=== PATIENT | male | born 1950 | race Caucasian/White ===

== ENCOUNTER 2025-07-28 08:07 | Day surgery (SDC) | payer MEDICARE, OTHER, SELFPAY ==
[2025-07-28] VITALS (16 sets, daily range): BP systolic 130–159; BP diastolic 81–101; BMI 22.9
[2025-07-28 08:29] LABS: Hematocrit 35.6 % (39.0-52.0); Hemoglobin 11.3 g/dL (13.0-18.0); Mean Corp Hgb Conc. 31.7 g/dL (33.0-37.0); Mean Corpuscular Volume 78.9 fL (80.0-94.0); Platelet Count 225 10^3/uL (130-400); Red Cell Dist. Width 15.3 % (11.5-14.5)
[2025-07-28 08:50] LABS: Blood Urea Nitrogen 22 mg/dl (9-20); Calcium 9.3 mg/dl (8.4-10.2); Carbon Dioxide 27 mmol/L (22-30); Chloride 106 mmol/L (98-107); Estimated Creatinine Clearance 62 ml/min; Glucose 106 mg/dl (70-99); Potassium 3.6 mmol/L (3.5-5.1); Sodium 142 mmol/L (135-145); eGFR > 60.00
--- NOTE | 2025-07-28 10:43 | ITS.CL.PACE ---
[facility] - Pacemaker Implant
Pacemaker Implant
Procedure Report:
Primary Care Doctor: Dr Radha Garcia
Primary Buffer Chrome: Dr Ethan Colon
Procedure Date: 07/28/2025
Name of procedure:
1. Placement of a single-chamber pacemaker with left bundle area pacing lead for conduction system pacing
2. Subclavian venography
History:
1. Patient is a pleasant 75-year-old male with a past medical history significant for CAD with prior CABG and stenting, dyslipidemia, hypertension, right bundle branch block, tachybradycardia syndrome with symptomatic permanent atrial fibrillation
with difficult to control heart rate. Patient experienced syncope in the setting of tachybradycardia syndrome.
2. Please refer to H&P for complete history.
Indication:
Symptomatic tachybradycardia syndrome
Syncope with symptomatic bradycardia
Permanent AF
Methods:
After informed consent was obtained, the patient was brought to the EP laboratory in a postabsorptive, nonsedated state. Peripheral IV access was established. Prophylactic antibiotics were administered prior to incision. Continuous ECG, blood
pressure, and pulse oximetry were initiated. Cardioversion patch electrodes were placed on the patient's chest and back. A grounding patch was applied to the skin. Sedation was administered left.
In order to define the extrathoracic portion of the subclavian vein and exclude significant venous obstruction or anomalous anatomy, subclavian venography was performed prior to the procedure. Using the patient's left peripheral IV, contrast was
injected and images were recorded. The left subclavian vein and SVC were found to be widely patent.
The left chest was prepared and draped in a sterile fashion. A time-out was performed. Local anesthesia was injected in the subcutaneous tissue in the infraclavicular area. An incision was made medial to the deltopectoral groove. The subcutaneous
tissue was dissected the level of the prepectoral fascia. A subcutaneous pocket was created. Under fluoroscopic guidance and with the assistance of the images from the venogram, venipuncture was made using micropuncture and modified Seldinger
technique. These were performed in the extrathoracic portion of the subclavian vein. Guidewire was passed and a peel-away sheath was placed and used to advance lead into the circulation.
Fluoroscopy was used to determine likely anatomic site for left bundle branch pacing. The Medtronic C315 sheath was used to deliver the Medtronic 3830 Selectsecure pacing lead with the helix exposed just exposed from the sheath tip during continuous
monitoring when pace mapping the septum during gentle clockwise rotation to obtain a paced QRS morphology of a W pattern in lead V1. Once the suspected optimal site was identified, lead deployment was performed with several rapid rotations as paced
QRS morphology was intermittently monitored until a paced QRS complex in lead V1 demonstrated development of an R wave (qR or rSR). Unipolar pacing impedance dropped by approximately 100-200 ohms suggesting it had reached the left ventricular
subendocardial. Stable VEgm injury current is present throughout lead position and at end of case. Final unipolar pacing impedance is 1045 Ohms. Unipolar pacing threshold is stable at 1.2 V @ 0.4 ms. The patient had pre-existing right bundle branch
block morphology at baseline and a sharp high-frequency left bundle-branch potential was observed preceding the local ventricular electrogram. Final conduction system paced QRS complex duration is 140 ms, LVAT is 81 ms, and peak V5 -> peak V1 timing
is 49 ms. The C315 sheath was slit under fluoroscopy ensuring lead position and stability.
The pocket was flushed with antibiotic solution and hemostasis was assured. The generator was connected to the leads and placed inside the pocket. The device was sutured to the fascia. Antibiotic envelope was used. Floseal was applied. The wound
was closed with 3 running layers of absorbable suture, and steri-strips were applied. Dressing applied over steri-strips in standard fashion.
Following the procedure, the patient was taken to the recovery area in stable condition. A chest x-ray to be obtained post procedure as routine.
Lead parameters and device programming:
- RV Lead (Medtronic, Model 3830, #[id number]): Sensing 7.0 mV, Pacing threshold 0.5 V at 0.4 ms, Imp 817 Ohm
- Device: Medtronic, Model W1SR01 pacemaker (#[id number]), programmed VVIR 70-130 ppm
Conclusions:
1. Successful placement of a single-chamber pacemaker with conduction system pacing (LBBAP)
2. Subclavian venography
Recommendations:
- Admit
- Chest x-ray today, [facility] in AM
- IV antibiotics while the patient is admitted.
- OK to resume home medications as indicated
- Pressure dressing to be removed in AM, aquacell to remain until wound check
- Follow-up will be arranged in the office in 7-10 days post-discharge
- If patient and site stable, OK to resume OAC 07/29/2025 PM
Jeremiah Shay DO, FAC, [facility]
Clinical Cardiac Oil Burner Installer
cc: Dr Radha Garcia; Dr Ethan Colon
--- NOTE | 2025-07-28 14:28 | CM ---
Reviewed chart. Met with MrDickson and Mrs. Tejeda to review discharge plans. He states prior to admission he resides with his spouse in a second floor apartment with an elevator. He states prior to admission he uses a single point cane He states he has
a single point cane at home. He states he has a prescription plan and uses [facility]. The discharge plan is to return home with his spouse when medically stable.
[2025-07-28 15:32] LABS: Glucose - Point of Care 94 mg/dl (70-99)
[2025-07-28 17:06] LABS: Glucose - Point of Care 206 mg/dl (70-99)
[2025-07-28] MEDS: ANCEF 5 IV ×2 (17:16→23:07)
[2025-07-28 17:54] LABS: Glucose - Point of Care 195 mg/dl (70-99)
[2025-07-28] MEDS: LOPRESSOR 25 MG PO (20:49)
[2025-07-28 21:26] LABS: Glucose - Point of Care 253 mg/dl (70-99)
[2025-07-28] MEDS: TYLENOL 650 MG PO (22:20)
[2025-07-28] MEDS: LIPITOR 20 MG PO (22:20)
[2025-07-28 22:21] LABS: Glucose - Point of Care 242 mg/dl (70-99)
[2025-07-28] MEDS: NOVOLOG FLEXPEN 4 UNITS SC (22:21)
--- NOTE | 2025-07-28 22:41 | PTCARENOTE ---
Patient received at change of shift resting in the bed. Left anterior chest wall pressure dressing in place, C/D/I, surrounding area soft to palpation. Radial pulse palpable. LUE in sling as ordered. The patient reports some mild to moderate pain at
the incision site, requesting PRN acetaminophen around bedtime, see MAR. Afib on the monitor with some Vpacing. Oxygen saturation 96% on RA. Patient with elevated blood glucose, CT surgery RUI Schwraz notified, stat dose of insulin ordered, see
MAR. Plan of care discussed, language line services utilized. Activity restrictions discussed. Call baker within reach. Care ongoing.
[2025-07-29 03:22] VITALS: BP 155/103
[2025-07-29 03:31] VITALS: BP 155/102
[2025-07-29 03:54] LABS: Hematocrit 34.0 % (39.0-52.0); Hemoglobin 11.1 g/dL (13.0-18.0); Mean Corp Hgb Conc. 32.6 g/dL (33.0-37.0); Mean Corpuscular Volume 77.4 fL (80.0-94.0); Platelet Count 211 10^3/uL (130-400); Red Cell Dist. Width 15.0 % (11.5-14.5)
[2025-07-29 04:20] LABS: Blood Urea Nitrogen 24 mg/dl (9-20); Calcium 9.0 mg/dl (8.4-10.2); Carbon Dioxide 22 mmol/L (22-30); Chloride 107 mmol/L (98-107); Estimated Creatinine Clearance 68 ml/min; Glucose 155 mg/dl (70-99); Magnesium 1.8 mg/dl (1.6-2.3); Potassium 4.4 mmol/L (3.5-5.1); Sodium 136 mmol/L (135-145); eGFR > 60.00
[2025-07-29 06:00] VITALS: BP 149/100
[2025-07-29] MEDS: LOPRESSOR 25 MG PO (06:17)
--- NOTE | 2025-07-29 07:24 | W.PN.CARDCBS ---
Addendum entered and electronically signed by Rui Kwok MD 07/29/25 10:32:
Patient seen and examined
Agree with PRINT SHOP MANAGER note and assessment
Agree with PRINT SHOP MANAGER plan
Exam:
HEENT normocephalic atraumatic
Cor regular
Telemetry with appropriate ventricular sensing and pacing
ECG reviewed
Chest x-ray reviewed
Left deltopectoral groove incision clean dry intact without hematoma
Impression:
Symptomatic tachybradycardia syndrome
Syncope with symptomatic bradycardia - 4.3 sec pause on Holter
Permanent Atrial fibrillation
post single chamber PPM with LBAP 07/28/25
CAD PCI 2014
HTN
HLD
RBBB
Plan:
Post device site stable
tele Afib
CXR no PTX, lead in good position
Hold Eliquis, resume tonight
Restart diltiazem and metoprolol, titrate as able as outpt
Hold Metformin 48hrs, post IV contrast, A1c pending
Activity restrictions reviewed
Incision check 1 week at [facility]
continue cardiac care with Dr. Colon
home today
Original Note:
Today's Communication / Plan
-
post SC PPM, stable for d/c home
Impression / Plan
-
Primary Care Doctor: Dr Radha Garcia
Primary Student Financial Aid Manager: Dr Ethan Colon
75-year-old male with a past medical history significant for CAD with prior CABG and stenting, dyslipidemia, hypertension, right bundle branch block, tachybradycardia syndrome with symptomatic permanent atrial fibrillation with difficult to control
heart rate. Patient experienced syncope in the setting of tachybradycardia syndrome.
Impression:
Symptomatic tachybradycardia syndrome
Syncope with symptomatic bradycardia - 4.3 sec pause on Holter
Permanent Atrial fibrillation
post single chamber PPM with LBAP 07/28/25
CAD PCI 2014
HTN
HLD
RBBB
Plan:
Post device site stable
tele Afib
CXR no PTX, lead in good position
Hold Eliquis, resume tonight
Restart diltiazem and metoprolol, titrate as able as outpt
Hold Metformin 48hrs, post IV contrast, A1c pending
Activity restrictions reviewed
Incision check 1 week at [facility]
continue cardiac care with Dr. Colon
home today
Progress Note - Student Financial Aid Manager
Subjective
Date of Service: July 29, 2025
denies cp, sob, mild inc pain
Objective
Labs:
07/29/25 03:36
07/29/25 03:36
Labs
Hgb 11.1 g/dL (13.0-18.0) L 07/29/25 03:36
Hct 34.0 % (39.0-52.0) L 07/29/25 03:36
Plt Count 211 10^3/uL (130-400) 07/29/25 03:36
Sodium 136 mmol/L (135-145) 07/29/25 03:36
Potassium 4.4 mmol/L (3.5-5.1) 07/29/25 03:36
BUN 24 mg/dl (9-20) H 07/29/25 03:36
Creatinine 0.9 mg/dL (0.7-1.3) 07/29/25 03:36
Glucose 155 mg/dl (70-99) H 07/29/25 03:36
Vital Signs and I&O:
Vital Signs
Temp Pulse Resp BP Pulse Ox
98.2 F 94 18 149/100 97
07/29/25 03:30 07/29/25 06:17 07/29/25 03:30 07/29/25 06:17 07/29/25 03:30
Vital Signs
Temp Pulse Resp BP Pulse Ox
98.2 F 94 18 149/100 97
07/29/25 03:30 07/29/25 06:17 07/29/25 03:30 07/29/25 06:17 07/29/25 03:30
Intake & Output
07/27/25 07/28/25 07/29/25 07/30/25
06:59 06:59 06:59 06:59
Intake Total 960 / 960
Balance 960 / 960
Physical Exam
Physical Exam
NAD, AOX3
S1, S2, RRR
CTAB, non labored, no wheeze
SNTND bsx4
L CW site scant marked drainage, no HT
--- NOTE | 2025-07-29 08:00 | PTCARENOTE ---
Assumed care of pt from prev nsg shift; Pt AAOx3 w/no c/o CP or SOB. Pt is [place] speaking but able to make needs known utilizing day treatment clinician/art therapist ipad. VSS w/HR in the 90's & BP 156/101 this AM. Pt is Afib w/occas V-pacing on telemetry monitoring. Pt
w/L chest wall PPM site w/Aquacell dressing C/D/I w/sm area of marked old drainage. No signs or symptoms of active bleeding or hematoma. Pt reports 'mild, 2/10 pain' at the site but is declining PRN Tylenol at this time. Pt w/no addtl needs at this
time. Plan of care ongoing.
[2025-07-29 08:28] VITALS: BP 156/101
[2025-07-29 08:28] LABS: Glycohemoglobin (HgbA1c) 6.0 % (4.0-5.6)
[2025-07-29 08:29] VITALS: BP 149/118
[2025-07-29] MEDS: CARDIZEM CD 240 MG PO (08:37)
[2025-07-29] MEDS: ZESTRIL 40 MG PO (08:37)
[2025-07-29] MEDS: ASPIR LOW (ENTERIC COATED) 81 MG PO (08:37)
--- NOTE | 2025-07-29 08:58 | W.DS.TRANS ---
DC Summary - Design Release Engineer
-
Discharge Instructions:
Sleep Apnea Risk Intermediate
Discharge Diagnosis/Procedures Pacemaker implant
Diet Low Cholesterol
Driving Restrictions No driving for 1 week
Bathing Restrictions OK to Shower
Instructions:
Stand-Alone Forms: DC Inst - Implanted Device
Changes to Home Medications: No
Discharge Medications:
DC Medications w/original date entered in [facility]
apixaban 5 mg tablet (Eliquis) 5 mg PO BID 07/28/25
aspirin 81 mg tablet,delayed release 81 mg PO DAILY 07/28/25
atorvastatin 20 mg tablet 20 mg PO HS 07/28/25
clonidine HCl 0.1 mg tablet 0.1 mg PO DAILY PRN as needed 07/28/25
diltiazem HCl 240 mg capsule,24 hr,extended release 240 mg PO DAILY 07/28/25
lisinopril 40 mg tablet 40 mg PO DAILY 07/28/25
metformin 500 mg tablet,extended release 24hr (osmotic) 500 mg PO TID 07/28/25
Held on 07/29/25. Instructions: Resume on 07/30/25.
metoprolol tartrate 25 mg tablet 25 mg PO BID 07/28/25
Home Medication Changes
Pending Results: No
[2025-07-29 09:14] LABS: Glucose - Point of Care 123 mg/dl (70-99)
--- NOTE | 2025-07-29 09:32 | CM ---
Reviewed chart. Met with MrDickson and Mrs. Maciel to review discharge plans. He states he is feeling good and maybe able to go home soon. Prior to admission he resides with his spouse in a second floor apartment with an elevator. Prior to admission he
uses a single point cane He has a single point cane at home. He has a prescription plan and uses [facility]. The discharge plan is to return home with his spouse when medically stable.
--- NOTE | 2025-07-29 11:15 | PTCARENOTE ---
Pt's IV line & clinical research monitor D/C'd. Afghan paraprofessional interpreter utilized to discuss D/C instructions including activity restrictions post pacemaker w/pt & spouse. Pt left w/PPM communication device & personal belongings including phone. Pt ambulated out
w/staff escort w/ driving pt home.
== END 2025-07-29 10:50 | disposition home or self-care (01) ==
LOC: CATH 08:07
PROVIDERS: Nurse Practitioner Adult Health; ATTENDING PHYSICIAN Internal Medicine Cardiovascular Disease; FAMILY PHYSICIAN Internal Medicine; OTHER PHYSICIAN Internal Medicine Cardiovascular Disease
DX: I49.5 Sick sinus syndrome (principal); E78.5 Hyperlipidemia, unspecified; I11.9 Hypertensive heart disease without heart failure; I25.10 Atherosclerotic heart disease of native coronary artery without angina pectoris; I45.10 Unspecified right bundle-branch block; I48.21 Permanent atrial fibrillation; I49.3 Ventricular premature depolarization; R73.03 Prediabetes; Z79.01 Long term (current) use of anticoagulants; Z95.1 Presence of aortocoronary bypass graft; Z95.5 Presence of coronary angioplasty implant and graft; R55 Syncope and collapse
CPT/HCPCS: 33207; 71045; 80048; 82962; 83036; 83735; 85027; 93005; C1769; C1786; C1898; Q9967